=== PATIENT | male | born 1945 | race Caucasian/White ===

== ENCOUNTER → 2016-11-02 | Outpatient (CLI) | payer MEDICARE, OTHER ==
[~2016-11-02] MED LIST: ASCO500T20 PO; ASPI-586 PO; ATOR80TA PO; FENO160T PO; LSNP10T PO; METF500T4 PO; METO-270 PO
--- NOTE | 2016-11-02 14:54 | Diagnostic Imaging Report ---
INDICATION: Anterior rib pain after coughing. COMPARISON: Chest radiograph of 07/10/2008. TECHNIQUE: Three views of the right ribs were obtained. FINDINGS: There is an acute, nondisplaced fracture of the anterior right seventh rib, best visualized on the oblique views. There is expected subjacent subpleural thickening, likely from edema and/or contusion. No pneumothorax. No pleural effusion. There are partially imaged changes of CABG with median sternotomy wires. IMPRESSION: 1. Acute, nondisplaced fracture of the anterior right seventh rib. 2. No pneumothorax or pleural effusion. Dictated by: Dictated on workstation # [id number]
== END ==
LOC: RAD 11:17
PROVIDERS: ATTEND Nurse Practitioner Family
DX: R07.81 Pleurodynia (principal); S22.31XA Fracture of one rib, right side, initial encounter for closed fracture; X58.XXXA Exposure to other specified factors, initial encounter
CPT/HCPCS: 71100

== ENCOUNTER → 2016-11-04 | Outpatient (CLI) | payer MEDICARE, OTHER ==
--- NOTE | 2016-11-04 10:13 | Diagnostic Imaging Report ---
EXAM: RENAL ULTRASOUND DATE: November 04, 2016. COMPARISON: None. INDICATION: 71-year-old male, chronic kidney disease, stage III. PROCEDURE: Two-dimensional grayscale and color Doppler examination of the kidneys is performed. FINDINGS: Right kidney: There is a nearly anechoic right renal lesion measuring 1.3 x 1.1 x 1.6 cm in size without internal blood flow consistent with a benign cyst an additional benign and similar appearing right renal cyst measuring 4.4 x 4.4 x 4.0 cm in size. No hydronephrosis. The right kidney measures 10.3 cm x 4.7 cm. Left kidney: There are multiple nearly anechoic left renal lesions without internal blood flow consistent with a benign cyst measuring up to approximately 1.5 x 1.2 cm in size, 1.1 x 0.9 cm in size, and 1.0 x 1.1 cm in size. No hydronephrosis. The left kidney measures 11.1 cm x 5.5 cm. Bladder: The urinary bladder is not imaged. The liver appears diffusely increased in echogenicity compared to the renal parenchyma suggestive of diffuse fatty infiltration of the liver. IMPRESSION: 1. Bilateral benign renal cysts. 2. No hydronephrosis. 3. Diffuse fatty infiltration of the liver. Dictated by: Dictated on workstation # [id number]
== END ==
LOC: RAD 09:14
PROVIDERS: ATTEND Internal Medicine Nephrology
DX: N18.3 Chronic kidney disease, stage 3 (moderate) (principal); N28.1 Cyst of kidney, acquired; K76.0 Fatty (change of) liver, not elsewhere classified
CPT/HCPCS: 76770

== ENCOUNTER → 2016-11-07 | Outpatient (REF) | payer MEDICARE, OTHER | LOC: LAB 13:35 | PROVIDERS: ATTEND Nurse Practitioner Family | DX: E11.9 Type 2 diabetes mellitus without complications (principal) | CPT/HCPCS: 83036 ==

== ENCOUNTER → 2017-02-28 | Outpatient (REF) | payer MEDICARE, OTHER ==
[2017-02-28 13:38] LABS: ALBUMIN 4.4 g/dL (3.4-5.0); ANION GAP 19.5 MEQ/L (3-15); TOTAL PROTEIN 7.7 g/dL (6.4-8.5)
== END ==
LOC: LAB 13:10
PROVIDERS: ATTEND Nurse Practitioner Family
DX: E11.9 Type 2 diabetes mellitus without complications (principal); E55.9 Vitamin D deficiency, unspecified; E78.2 Mixed hyperlipidemia
CPT/HCPCS: 80053; 80061; 82306; 83036